=== PATIENT | female | born 1965 | race Caucasian/White ===

== ENCOUNTER 2018-06-16 17:18 | Outpatient (REF) | payer BC, SELFPAY ==
[2018-06-16 21:41] LABS: Cholesterol 183 mg/dL (50-200); HDL Cholesterol 69 mg/dL (40-60); LDL CHOLESTEROL 101 mg/dL (<100); TSH (W/Ref FT4) 1.76 uIU/mL (0.358-3.74); Triglyceride 55 mg/dL (30-150)
[2018-06-16 22:00] LABS: Hemoglobin A1C 5.1 % (4.5-6.2)
== END 2018-06-16 17:38 ==
LOC: NCHCN 17:18
PROVIDERS: PCP Obstetrics & Gynecology; Visit Provider Nurse Practitioner Family
DX: I67.9 Cerebrovascular disease, unspecified (principal)
CPT/HCPCS: 80061; 83721; 83036; 84443

== ENCOUNTER 2019-07-05 12:02 | Outpatient (REF) | payer BC, SELFPAY | END 2019-07-05 12:22 | LOC: NCHCN 12:02 | PROVIDERS: PCP Obstetrics & Gynecology; Visit Provider Nurse Practitioner Family | DX: R31.9 Hematuria, unspecified (principal); R82.90 Unspecified abnormal findings in urine | CPT/HCPCS: 87077; 87086; 87186 ==

== ENCOUNTER 2021-02-04 11:24 | Outpatient (REF) | payer OTHER, SELFPAY ==
--- NOTE | 2021-02-04 09:50 | PAPFT_PTH ---
PATIENT: Amirah Scott LOC: [facility] U#:[id number] AGE/SX: 55/F ROOM: RE02/04/[address]: KEN Barrios : 1965 BED: DIS: 02/04/2021 SPEC #: [id number] RECD: 02/04/21 13:13 STATUS: CIPRIANO REQ #: [id number] REBA: 02/04/21 09:[address]: Marybel Mcclure DEPT: [facility] Cytology RECD BY: Cheryl Vasquez ENTERED: 02/04/21 13:14 SP TYPE: PAPFT OTHR DR: Breezy Anderson Tissues: 1 - CX/ENDOCX FOR PAP SMEARS Procedures: PAP THIN PREP/[facility] Screening HPV DNA PROBE Comments: [id number]
== END 2021-02-04 11:25 | disposition home or self-care (01) ==
LOC: LBN 11:24
PROVIDERS: PCP Obstetrics & Gynecology; Visit Provider Nurse Practitioner Family
DX: Z12.4 Encounter for screening for malignant neoplasm of cervix (principal); Z11.51 Encounter for screening for human papillomavirus (HPV)
CPT/HCPCS: 88142; 87624

== ENCOUNTER 2021-11-27 18:43 | Outpatient (REF) | payer BC, SELFPAY ==
[2021-11-27 19:00] LABS: Abs Immature Grans 0.02 10^3/uL (0.0-0.06); Absolute Basophil Count 0.06 10^3/uL (0.0-0.2); Absolute Eosinophil Count 0.05 10^3/uL (0.0-0.7); Absolute Lymphocyte Count 2.33 10^3/uL (1.2-3.4); Absolute Monocyte Count 0.53 10^3/uL (0.1-0.8); Absolute Neutrophil Count 4.43 10^3/uL (1.2-6.7); Basophils % 0.8; Eosinophils % 0.7; HCT 44.7 % (36.0-46.0); HGB 14.3 g/dL (11.2-15.7); Immature Grans % 0.3; Lymphocytes % 31.4; MCH 30.4 pg (27.0-33.0); MCV 95.1 fL (80-95); MPV 12.5 fL (8.0-11.0); Monocytes % 7.1; Neutrophils % 59.7; Platelet Count 246 10^3/uL (130-400); RDW-SD 41.8 fL; WBC 7.42 10^3/uL (4.4-10.8)
[2021-11-27 19:23] LABS: Anion Gap 7.3 mmol/L (3-11); BUN 11 mg/dL (7-18); CO2 29.7 mmol/L (21.0-32.0); CREATININE 0.6 mg/dL (0.55-1.02); Calcium 9.3 mg/dL (8.5-10.1); Chloride 105 mmol/L (98-107); Glucose 98 mg/dL (74-106); Potassium 4.4 mmol/L (3.5-5.1); Sodium 142 mmol/L (136-145); TSH (W/Ref FT4) 1.77 uIU/mL (0.36-3.74)
== END 2021-11-27 18:44 | disposition home or self-care (01) ==
LOC: NCHCN 18:43
PROVIDERS: PCP Obstetrics & Gynecology; Visit Provider Internal Medicine
DX: R53.83 Other fatigue (principal); R06.09 Other forms of dyspnea
CPT/HCPCS: 80048; 84443; 85025

== ENCOUNTER 2023-01-02 14:06 | Outpatient (REF) | payer BC, SELFPAY ==
[2023-01-05 13:22] LABS: Chlamydia Result Negative (Negative); GC Result Negative (Negative)
== END 2023-01-02 14:07 | disposition home or self-care (01) ==
LOC: LBN 14:06
PROVIDERS: PCP Obstetrics & Gynecology; Visit Provider Obstetrics & Gynecology
DX: R10.2 Pelvic and perineal pain (principal); N89.8 Other specified noninflammatory disorders of vagina
CPT/HCPCS: 87491; 87591; 87480; 87510; 87660

== ENCOUNTER 2023-02-24 00:59 | Outpatient (CLI) | payer BC, SELFPAY ==
[2023-02-24] MEDS: Gadoterate meglumine 20 ML VIAL IVP (08:34)
[2023-02-24] MEDS: Normal Saline Flush 10 ML SYR IVP (08:34)
--- NOTE | 2023-02-24 08:50 | DI.MRI_ITS ---
Exam(s) MR PELVIS WO/W EXAM: MR PELVIS WO/W CLINICAL HISTORY: abd pain/pelvic pain/abnormal US,?fibroid or mass,hypoechoic area TECHNIQUE: Multiplanar multisequence MRI of Pelvis was performed. CONTRAST MATERIAL: IV Contrast: 13 mL of Dotarem contrast administered. COMPARISON: US US PELVIS from 01/27/2023 FINDINGS: Uterus: The uterus measures 6.6 long by 2.2 AP by 3.2 transverse cm. The endometrium is unremarkable . No evidence of a endometrial or myometrial masses seen. Following contrast administration no enha ncing lesion is identified. Ovaries: There is limited visualization due to the size. No suspicious adnexal masses are seen. Bowel: There is diverticulosis of the sigmoid colon. No evidence of acute diverticulitis. Urinary bladder: Unremarkable. Vasculature: Unremarkable. Bones: Unremarkable. Soft tissues: Unremarkable. IMPRESSION: 1. No evidence of a uterine mass. 2. No evidence of a pelvic mass or enhancing lesion. DATA REPOSITORY:
== END 2023-02-24 01:19 ==
LOC: DI 00:59
PROVIDERS: PCP Obstetrics & Gynecology; Visit Provider Surgery
DX: K43.9 Ventral hernia without obstruction or gangrene (principal); M54.9 Dorsalgia, unspecified; N90.4 Leukoplakia of vulva; N94.89 Other specified conditions associated with female genital organs and menstrual cycle; N95.2 Postmenopausal atrophic vaginitis; R10.2 Pelvic and perineal pain; R10.9 Unspecified abdominal pain
CPT/HCPCS: 72197